=== PATIENT | female | born 1940 | race Caucasian/White ===

== ENCOUNTER 2019-10-30 10:13 | Emergency (ER) | payer OTHER ==
[2019-10-30] MEDS ORDERED: NA CHLORIDE 0.9% 500 ML ONE (10:39)
[2019-10-30] MEDS ORDERED: METOCLOPRAMIDE 10 MG/2mL INJ ONE (10:39)
[2019-10-30 10:58] LABS: Absolute Lymphocytes (CBC) 1.5 K/uL (0.7-4.9); Basophils % 0.8 % (0-1.3); Hematocrit 43.3 % (36.0-45.0); Lymphocytes % 38.4 % (15.3-44.8); MPV 9.3 fL (7.6-11.3); RBC Red Blood Cell Count 4.98 M/uL (3.86-4.86)
--- NOTE | 2019-10-30 11:04 | RAD REPORT ---
EXAM DESCRIPTION: CT - Head Brain Wo Cont - 10/30/2019 10:49 am CLINICAL HISTORY: Left frontal headache, left frontal head pain with COMPARISON: None. TECHNIQUE: Axial 5 mm thick images of the head were obtained without IV contrast. All CT scans are performed using dose optimization technique as appropriate and may include automated exposure control or mA/KV adjustment according to patient size. FINDINGS: No intracranial hemorrhage, mass, edema or shift of mid-line structures. No acute infarcti on changes seen. No abnormal extra-axial fluid collections. Ventricles are normal. No significant atr ophy or chronic ischemic change. Mastoid air cells and visualized portions of the paranasal sinuses are clear. No acute bony findings. IMPRESSION: Negative non-contrast CT head examination.
[2019-10-30 11:14] LABS: Albumin 3.2 g/dL (3.4-5.0); Bilirubin Total 0.5 mg/dL (0.2-1.0); Potassium 3.7 mmol/L (3.5-5.1); Protein, Total 6.8 g/dL (6.4-8.2)
[2019-10-30] MEDS ORDERED: ACETAMINOPHEN 325 MG TABLET ONE (11:35)
[2019-10-30] MEDS ORDERED: DIPHENHYDRAMINE 50 MG/ML VIAL ONE (11:36)
--- NOTE | 2019-10-30 12:21 | ER ---
Nurse's Notes [facility] Name: Chio Coombs Age: 79 yrs Sex: Female : 1940 Arrival Date: 10/30/2019 Time: 10:15 Bed 4 Private MD: Franc Duckworth V Diagnosis: Headache Presentation: 10/30 10:21 Presenting complaint: Patient states: Intermittent frontal headache that began this aa5 morning when pt woke up around 0700 today. Pt reports going to bed last night around 2130. Pt denies nausea/vomiting. Denies hx of headaches. 10:21 Transition of care: patient was not received from another setting of care. Onset of aa5 symptoms was October 30, 2019. Risk Assessment: Do you want to hurt yourself or someone else? Patient reports no desire to harm self or others. Initial Sepsis Screen: Does the patient meet any 2 criteria? No. Patient's initial sepsis screen is negative. Does the patient have a suspected source of infection? No. Patient's initial sepsis screen is negative. Care prior to arrival: None. 10:21 Acuity: RADHA 3 aa5 10:21 Method Of Arrival: Ambulatory aa5 Historical: - Allergies: 10:22 No Known Allergies; aa5 - Home Meds: 10:22 Warfarin alternate 5mg and 6mg every other day Oral [Active]; aa5 - PMHx: 10:22 Multiple PEs; Diverticulitis; aa5 - PSHx: 10:22 Cholecystectomy; Tonsillectomy; Knee surgery; back; aa5 - Immunization history:: Flu vaccine is up to date. - Coronavirus screen:: The patient has NOT traveled to [place], [place], or [place] in the past 14 days. The patient has NOT had contact with known/suspected case of Coronavirus?. - Social history:: Smoking status: Patient denies any tobacco usage or history of. - Ebola Screening: : No symptoms or risks identified at this time. Screenin:22 Abuse screen: Denies threats or abuse. Nutritional screening: No deficits noted. aa5 Tuberculosis screening: No symptoms or risk factors identified. Fall Risk None identified. Assessment: 10:22 General: Appears uncomfortable, Behavior is calm, cooperative. Pain: Complains of pain aa5 in forehead and top of head Pain does not radiate. Pain currently is 0 out of 10 on a pain scale. at worst was 5 out of 10 on a pain scale. Quality of pain is described as sharp, Pain began this morning Is intermittent. Neuro: Level of Consciousness is awake, alert, obeys commands, Oriented to person, place, time, situation, Locator are equal bilaterally Moves all extremities. Gait is steady, Speech is normal, Facial symmetry appears normal, Pupils are PERRLA. Cardiovascular: Heart tones S1 S2 present Patient's skin is warm and dry. Rhythm is regular. Respiratory: Airway is patent Respiratory effort is even, unlabored, Respiratory pattern is regular, symmetrical. GI: Abdomen is round non-distended, Bowel sounds present X 4 quads. Abd is soft and non tender X 4 quads. Patient currently denies nausea, vomiting. : No signs and/or symptoms were reported regarding the genitourinary system. EENT: No signs and/or symptoms were reported regarding the EENT system. Derm: Skin is pink, warm \T\ dry. Musculoskeletal: Range of motion: intact in all extremities. 11:20 Reassessment: Patient appears in no apparent distress at this time. Patient and/or em family updated on plan of care and expected duration. Pain level reassessed. Patient is alert, oriented x 3, equal unlabored respirations, skin warm/dry/pink. Patient states symptoms have not improved. 12:10 Reassessment: Patient appears in no apparent distress at this time. Patient and/or em family updated on plan of care and expected duration. Pain level reassessed. Patient is alert, oriented x 3, equal unlabored respirations, skin warm/dry/pink. Patient states feeling better. Patient states symptoms have improved. Vital Signs: 10:22 BP 177 / 67; Pulse 57; Resp 16 S; Temp 98.3(O); Pulse Ox 98% on R/A; Weight 88.45 kg aa5 (R); Height 5 ft. 4 in. (162.56 cm) (R); Pain 0/10; 11:20 BP 160 / 53; Pulse 54; Resp 18; Pulse Ox 99% on R/A; Pain 4/10; em 12:10 BP 156 / 71; Pulse 54; Resp 18; Pulse Ox 99% on R/A; em 10:22 Body Mass Index 33.47 (88.45 kg, 162.56 cm) aa5 ED Course: 10:15 Patient arrived in ED. mr 10:17 Franc Duckworth MD is Private Physician. mr 10:21 Arm band placed on Patient placed in an exam room, on a stretcher. aa5 10:21 Patient has correct armband on for positive identification. Placed in gown. Bed in low aa5 position. Call light in reach. Side rails up X2. 10:22 Shola Delacruz PA is PHCP. jmm 10:22 Alec Brown MD is Attending Physician. jmm 10:29 Drew Cabrera, ROSE MARIE is Primary Nurse. em 10:36 Triage completed. aa5 10:38 Initial lab(s) drawn, by me, sent to lab. Inserted saline lock: 20 gauge in left em antecubital area, using aseptic technique. Blood collected. 10:49 CT Head Brain wo Cont In Process Unspecified. EDMS 12:20 Arron Saldana MD is Referral Physician. jmm 12:35 No provider procedures requiring assistance completed. IV discontinued, intact, em bleeding controlled, No redness/swelling at site. Pressure dressing applied. Administered Medications: 10:39 Drug: NS 0.9% 500 ml Route: IV; Rate: bolus; Site: left antecubital; em 11:38 Follow up: IV Status: Completed infusion; IV Intake: 500ml em 10:39 Drug: Reglan 10 mg Route: IVP; Site: left antecubital; em 11:38 Follow up: Response: No adverse reaction; Marked relief of symptoms; Pain is unchanged, em physician notified 11:34 Drug: Tylenol 650 mg Route: PO; em 12:10 Follow up: Response: No adverse reaction; Marked relief of symptoms; Pain is decreased em 11:34 Drug: Benadryl 12.5 mg Route: IVP; Site: left antecubital; em 12:10 Follow up: Response: No adverse reaction; Marked relief of symptoms; Pain is decreased em Intake: 11:38 IV: 500ml; Total: 500ml. em Outcome: 12:21 Discharge ordered by . jmm 12:35 Discharged to home ambulatory, with family. em 12:35 Condition: good 12:35 Discharge instructions given to patient, family, Instructed on discharge instructions, follow up and referral plans. Demonstrated understanding of instructions, follow-up care. 12:38 Patient left the ED. em Signatures: Dispatcher [employer] EDShola Stephen PA PA jmm GregoryKhushi mr Drew Cabrera RN RN Michaelle Duncan RN RN aa5 Corrections: (The following items were deleted from the chart) 10:45 10:21 Presenting complaint: Patient states: frontal headache that began this morning aa5 when pt woke up around 0700 today. Pt reports going to bed last night around 2130. Pt denies nausea/vomiting. Denies hx of headaches. aa5
--- NOTE | 2019-10-30 12:21 | EDPHYS ---
Physician Documentation [facility] Name: Chio Coombs Age: 79 yrs Sex: Female : 1940 Arrival Date: 10/30/2019 Time: 10:15 Bed 4 Private MD: Franc Duckworth V ED Physician Alec Brown HPI: 10/30 10:32 This 79 yrs old Female presents to ER via Unassigned with complaints of Head jmm pain. 10:32 The patient complains of pain to the top of head and left frontal area. Onset: The jmm symptoms/episode began/occurred 3.5 hour(s) ago. Associated signs and symptoms: Pertinent negatives: dizziness, fever, neck stiffness, paresthesias. This is a 79 year old female that presents to the ED with complaints of left sided headache beginning this morning at around 0730. Patient states not having a similar headache in the past. Localized to the left frontal area. Denies fever or vomiting. . Historical: - Allergies: 10:22 No Known Allergies; aa5 - Home Meds: 10:22 Warfarin alternate 5mg and 6mg every other day Oral [Active]; aa5 - PMHx: 10:22 Multiple PEs; Diverticulitis; aa5 - PSHx: 10:22 Cholecystectomy; Tonsillectomy; Knee surgery; back; aa5 - Immunization history:: Flu vaccine is up to date. - Coronavirus screen:: The patient has NOT traveled to [place], [place], or [place] in the past 14 days. The patient has NOT had contact with known/suspected case of Coronavirus?. - Social history:: Smoking status: Patient denies any tobacco usage or history of. - Ebola Screening: : No symptoms or risks identified at this time. ROS: 10:32 Constitutional: Negative for fever, chills, and weight loss, Cardiovascular: Negative jmm for chest pain, palpitations, and edema, Respiratory: Negative for shortness of breath, cough, wheezing, and pleuritic chest pain. 10:32 Abdomen/GI: Positive for nausea. 10:32 Neuro: Positive for headache. 10:32 All other systems are negative. Exam: 10:32 Constitutional: This is a well developed, well nourished patient who is awake, alert, jmm and in no acute distress. Head/Face: atraumatic. Eyes: EOMI, no conjunctival erythema appreciated ENT: Moist Mucus Membranes Neck: Trachea midline, Supple Chest/axilla: Normal chest wall appearance and motion. Cardiovascular: Regular rate and rhythm. No edema appreciated Respiratory: Normal respirations, no respiratory distress appreciated Abdomen/GI: Non distended, soft Back: Normal ROM Skin: General appearance color normal MS/ Extremity: Moves all extremities, no obvious deformities appreciated, no edema noted to the lower extremities Neuro: Awake and alert, normal gait Psych: Behavior is normal, Mood is normal, Patient is cooperative and pleasant Vital Signs: 10:22 BP 177 / 67; Pulse 57; Resp 16 S; Temp 98.3(O); Pulse Ox 98% on R/A; Weight 88.45 kg aa5 (R); Height 5 ft. 4 in. (162.56 cm) (R); Pain 0/10; 11:20 BP 160 / 53; Pulse 54; Resp 18; Pulse Ox 99% on R/A; Pain 4/10; em 12:10 BP 156 / 71; Pulse 54; Resp 18; Pulse Ox 99% on R/A; em 10:22 Body Mass Index 33.47 (88.45 kg, 162.56 cm) aa5 MDM: 10:27 Patient medically screened. [facility] 12:19 Data reviewed: vital signs, nurses notes. Counseling: I had a detailed discussion with richelle the patient and/or guardian regarding: the historical points, exam findings, and any diagnostic results supporting the discharge/admit diagnosis, lab results, radiology results, the need for outpatient follow up, to return to the emergency department if symptoms worsen or persist or if there are any questions or concerns that arise at home. ED course: Headache decreased in intensity. CT within 6 hours reveals no signs of SAH. Neck is supple, I do not suspect meningitis. ESR wnl, I do not suspect temporal arteritis. Patient is advised to follow up with neuro for further evaluation. Patient otherwise given strict return precautions. Patient understood and agrees with the plan of care. . 10/30 10:31 Order name: CBC with Diff; Complete Time: 11:16 [facility] 10/30 10:31 Order name: CMP; Complete Time: 11:16 [facility] 10/30 10:31 Order name: ESR; Complete Time: 11:16 [facility] 10/30 10:31 Order name: CT Head Brain wo Cont; Complete Time: 11:08 [facility] 10/30 10:31 Order name: Saline Lock; Complete Time: 10:43 [facility] Administered Medications: 10:39 Drug: NS 0.9% 500 ml Route: IV; Rate: bolus; Site: left antecubital; em 11:38 Follow up: IV Status: Completed infusion; IV Intake: 500ml em 10:39 Drug: Reglan 10 mg Route: IVP; Site: left antecubital; em 11:38 Follow up: Response: No adverse reaction; Marked relief of symptoms; Pain is unchanged, em physician notified 11:34 Drug: Tylenol 650 mg Route: PO; em 12:10 Follow up: Response: No adverse reaction; Marked relief of symptoms; Pain is decreased em 11:34 Drug: Benadryl 12.5 mg Route: IVP; Site: left antecubital; em 12:10 Follow up: Response: No adverse reaction; Marked relief of symptoms; Pain is decreased em Disposition: 10/31 07:40 Co-signature as Attending Physician, Alec Brown MD I agree with the assessment and collin plan of care. Disposition: 10/30/19 12:21 Discharged to Home. Impression: Headache. - Condition is Stable. - Discharge Instructions: General Headache Without Cause. - Medication Reconciliation Form, Thank You Letter, Antibiotic Education, Prescription Opioid Use form. - Follow up: Arron Saldana MD; When: 2 - 3 days; Reason: Recheck today's complaints, Continuance of care, Re-evaluation by your physician. Signatures: Dispatcher [employer] Alec Carpenter MD MD cha Mickail, Joel, PA PA [facility] Drew Cabrera, RN RN em Michaelle Joy, RN RN aa5 Corrections: (The following items were deleted from the chart) 10/30 12:38 12:21 10/30/2019 12:21 Discharged to Home. Impression: Headache. Condition is Stable. em Forms are Medication Reconciliation Form, Thank You Letter, Antibiotic Education, Prescription Opioid Use. Follow up: Arron Saldana; When: 2 - 3 days; Reason: Recheck today's complaints, Continuance of care, Re-evaluation by your physician. rick
== END 2019-10-30 12:38 | disposition home or self-care (01) ==
LOC: ER 10:13
DX: R51 Headache (principal); Z86.711 Personal history of pulmonary embolism; Z79.01 Long term (current) use of anticoagulants
CPT/HCPCS: 96361; 85025; 36415; 85652; 80053; 70450; 96375; 96374; 99284; J2765; J1200; J7040

== ENCOUNTER 2020-05-18 16:21 | Emergency (ER) | payer OTHER ==
[2020-05-18] MEDS ORDERED: ACETAMINOPHEN 325 MG TABLET ONE (17:19)
--- NOTE | 2020-05-18 17:44 | RAD REPORT ---
EXAM DESCRIPTION: RAD - Ankle Left 3 View -05/18/2020 5:21 pm CLINICAL HISTORY: Left ankle pain status post injury FINDINGS: No fracture or dislocation is seen.
--- NOTE | 2020-05-18 17:45 | RAD REPORT ---
EXAM DESCRIPTION: RAD - Foot Left 3 View - 05/18/2020 5:21 pm CLINICAL HISTORY: Left Foot pain FINDINGS: No fracture or dislocation is seen. Large calcaneal spur.
[2020-05-18] MEDS ORDERED: TRAMADOL HCL 50 MG TAB ONE ×2 (17:55→18:26)
--- NOTE | 2020-05-18 17:55 | ER ---
Nurse's Notes [facility] Name: Chio Coombs Age: 79 yrs Sex: Female : 1940 Arrival Date: 05/18/2020 Time: 16:23 Bed 14 Private MD: Diagnosis: Unspecified sprain of left foot;Sprain of ankle-left Presentation: 05/18 16:31 Chief complaint: Patient states: Twisted left ankle 2 hours [employer]. Pain to ankle and foot ll1 since. Coronavirus screen: Client denies travel out of the [place] in the last 14 days. At this time, the client does not indicate any symptoms associated with coronavirus-19. Ebola Screen: Patient denies travel to an Ebola-affected area in the 21 days before illness onset. Initial Sepsis Screen: Does the patient meet any 2 criteria? No. Patient's initial sepsis screen is negative. Risk Assessment: Do you want to hurt yourself or someone else? Patient reports no desire to harm self or others. Onset of symptoms was May 18, 2020. 16:31 Method Of Arrival: Wheelchair ll1 16:31 Acuity: RADHA 3 ll1 Historical: - Allergies: 16:32 No Known Allergies; ll1 - PMHx: 16:32 Diverticulitis; Multiple PEs; ll1 - PSHx: 16:32 Cholecystectomy; Tonsillectomy; Knee surgery; back; ll1 - Immunization history:: Flu vaccine is up to date. - Social history:: Smoking status: Patient denies any tobacco usage or history of. Patient/guardian denies using alcohol, street drugs. Screenin:45 Abuse screen: Denies threats or abuse. Denies injuries from another. Nutritional jr10 screening: No deficits noted. Tuberculosis screening: No symptoms or risk factors identified. Fall Risk Fall in past 12 months (25 points). No secondary diagnosis (0 pts). No IV (0 pts). Ambulatory Aid- None/Bed Rest/Nurse Assist (0 pts). Gait- Normal/Bed Rest/Wheelchair (0 pts) Mental Status- Oriented to own ability (0 pts). Assessment: 16:45 General: Appears uncomfortable, Behavior is appropriate for age. Pain: Complains of jr10 pain in dorsum of left foot Pain radiates to left leg Pain currently is 10 out of 10 on a pain scale. Quality of pain is described as aching, shooting, throbbing, Pain began 2 hours ago. Is continuous, Aggravated by weight bearing, Noted to be grimacing. Neuro: No deficits noted. Cardiovascular: Pulses are palpable in right dorsalis pedis artery and left dorsalis pedis artery. Respiratory: No deficits noted. Airway is patent Respiratory effort is even, unlabored, Respiratory pattern is regular, symmetrical. Musculoskeletal: Circulation, motion, and sensation intact. Capillary refill < 3 seconds, Swelling present in dorsum of left foot. Injury Description: Bruise sustained to dorsum of left foot. Vital Signs: 16:31 BP 184 / 69; Pulse 51; Resp 18; Temp 98.5; Pulse Ox 99% ; Weight 81.65 kg; Height 5 ft. ll1 4 in. (162.56 cm); Pain 8/10; 18:30 BP 178 / 72; Pulse 54; Resp 18; Pulse Ox 99% on R/A; jr10 16:31 Body Mass Index 30.90 (81.65 kg, 162.56 cm) ll1 ED Course: 16:23 Patient arrived in ED. as 16:32 Triage completed. ll1 16:33 Arm band placed on. ll1 16:36 Alec Strange PA is PHCP. cp 16:36 Alec Brown MD is Attending Physician. cp 16:37 Qiana Gregory, ROSE MARIE is Primary Nurse. jr10 16:45 Patient has correct armband on for positive identification. Bed in low position. Call jr10 light in reach. Side rails up X2. art installer on. Pulse ox on. NIBP on. 16:45 No provider procedures requiring assistance completed. Patient did not have IV access jr10 during this emergency room visit. 17:21 XRAY Foot LEFT 3 View In Process Unspecified. EDMS 17:21 XRAY Ankle LEFT 3 view In Process Unspecified. EDMS 18:29 Ortho shoe applied to left foot. jr10 Administered Medications: 17:13 Drug: Tylenol 650 mg Route: PO; jr10 18:32 Follow up: Response: No adverse reaction jr10 17:15 Not Given (Patient Refused; pt currently on coumadin, states that her doctor does not jr10 want her taking ibuprofen): Ibuprofen 800 mg PO once 18:24 Drug: traMADol 100 mg Route: PO; jr10 18:32 Follow up: Response: No adverse reaction jr10 Outcome: 17:55 Discharge ordered by . cp 18:29 Discharged to home via wheelchair. jr10 18:29 Condition: good 18:29 Discharge instructions given to patient, Instructed on discharge instructions, follow up and referral plans. Demonstrated understanding of instructions, follow-up care, medications, Prescriptions given X 1. 18:31 Patient left the ED. jr10 Signatures: Dispatcher [employer] EDJil Marr Corey, PA PA cp Lewis, Lynsay, RN RN ll1 Qiana Gregory RN RN jr10
--- NOTE | 2020-05-18 17:55 | EDPHYS ---
Physician Documentation [facility] Name: Chio Coombs Age: 79 yrs Sex: Female : 1940 Arrival Date: 05/18/2020 Time: 16:23 Bed 14 Private MD: Alec Arredondo HPI: 05/18 16:55 This 79 yrs old Female presents to ER via Wheelchair with complaints of Foot cp Injury. 16:55 The patient presents with an injury, pain, that is acute, swelling, tenderness. The cp complaints affect the left foot and left ankle. Context: resulted from a mis-step, the patient can partially bear weight, the patient is able to ambulate, with moderate difficulty. Onset: The symptoms/episode began/occurred today. Associated signs and symptoms: Pertinent negatives calf tenderness, numbness. Historical: - Allergies: 16:32 No Known Allergies; ll1 - PMHx: 16:32 Diverticulitis; Multiple PEs; ll1 - PSHx: 16:32 Cholecystectomy; Tonsillectomy; Knee surgery; back; ll1 - Immunization history:: Flu vaccine is up to date. - Social history:: Smoking status: Patient denies any tobacco usage or history of. Patient/guardian denies using alcohol, street drugs. ROS: 17:05 MS/extremity: Positive for pain, swelling, tenderness, of the left foot and left ankle. cp 17:05 Neuro: Negative for numbness, tingling. cp 17:05 All other systems are negative. Exam: 17:10 Constitutional: The patient appears in no acute distress, alert, awake, well developed, cp well nourished. 17:10 Musculoskeletal/extremity: Extremities: grossly normal except: noted in the dorsum of cp left foot and left lateral ankle: pain, swelling, tenderness, ROM: limited passive range of motion due to pain, in the left ankle, Perfusion: the extremity is normally perfused throughout, Sensation intact. Achilles tendon palpated and intact. Vital Signs: 16:31 BP 184 / 69; Pulse 51; Resp 18; Temp 98.5; Pulse Ox 99% ; Weight 81.65 kg; Height 5 ft. ll1 4 in. (162.56 cm); Pain 8/10; 18:30 BP 178 / 72; Pulse 54; Resp 18; Pulse Ox 99% on R/A; jr10 16:31 Body Mass Index 30.90 (81.65 kg, 162.56 cm) ll1 Procedures: 18:25 Splinting: Splint applied to left foot and left ankle using walking boot. applied by cp nurse. Examined by me, post splint application: neurovascular intact, Patient tolerated well. MDM: 16:38 Patient medically screened. cp 17:10 Differential diagnosis: open fracture, closed fracture, sprain. cp 17:35 Test interpretation: by ED physician or midlevel provider: xrays of left ankle negative cp for fracture and xrays of left foot negative for fracture. 17:55 Data reviewed: vital signs, nurses notes, radiologic studies, plain films. cp 17:55 Response to treatment: the patient's symptoms have markedly improved after treatment, cp and as a result, I will discharge patient. 05/18 16:51 Order name: XRAY Foot LEFT 3 View; Complete Time: 17:47 cp 05/18 17:47 Interpretation: Reviewed report. 05/18 16:51 Order name: XRAY Ankle LEFT 3 view; Complete Time: 17:47 cp 05/18 17:48 Interpretation: Report reviewed. 05/18 17:54 Order name: Walking boot; Complete Time: 18:24 cp Administered Medications: 17:13 Drug: Tylenol 650 mg Route: PO; [facility] 18:32 Follow up: Response: No adverse reaction [facility] 17:15 Not Given (Patient Refused; pt currently on coumadin, states that her doctor does not jr10 want her taking ibuprofen): Ibuprofen 800 mg PO once 18:24 Drug: traMADol 100 mg Route: PO; [facility] 18:32 Follow up: Response: No adverse reaction [facility] Disposition: 18:30 Chart complete. cp Disposition: 05/18/20 17:55 Discharged to Home. Impression: Unspecified sprain of left foot, Sprain of ankle - left. - Condition is Stable. - Discharge Instructions: Ankle Sprain, Foot Sprain. - Prescriptions for Tramadol 50 mg Oral Tablet - take 1 tablet by ORAL route every 8 hours as needed; 12 tablet. - Medication Reconciliation Form, Thank You Letter, Antibiotic Education, Prescription Opioid Use form. - Follow up: Private Physician; When: 1 week; Reason: Recheck today's complaints. - Problem is new. - Symptoms have improved. Addendum: 05/20/2020 09:03 Co-signature as Attending Physician, Alec Brown MD I agree with the assessment and c henderson plan of care. Signatures: Dispatcher [employer] EDAlec Traylor MD MD cha Page, Corey, PA PA cp Lewis, Lynsay, RN RN ll1 Qiana Gregory RN RN jr10 Corrections: (The following items were deleted from the chart) 05/18 18:31 17:55 05/18/2020 17:55 Discharged to Home. Impression: Unspecified sprain of left foot; jr10 Sprain of ankle - left. Condition is Stable. Forms are Medication Reconciliation Form, Thank You Letter, Antibiotic Education, Prescription Opioid Use. Follow up: Private Physician; When: 1 week; Reason: Recheck today's complaints. Problem is new. Symptoms have improved. cp
== END 2020-05-18 18:31 | disposition home or self-care (01) ==
LOC: ER 16:21
DX: S93.402A Sprain of unspecified ligament of left ankle, initial encounter (principal); S93.602A Unspecified sprain of left foot, initial encounter; X50.1XXA Overexertion from prolonged static or awkward postures, initial encounter; Y93.9 Activity, unspecified; Y92.9 Unspecified place or not applicable
CPT/HCPCS: 99284

== ENCOUNTER 2021-01-07 17:44 | Inpatient (IN) | payer OTHER ==
[2021-01-07 23:30] VITALS: BMI 32.7
[2021-01-07] MEDS ORDERED: ONDANSETRON 4 MG/2 ML VIAL IV PRN (23:37)
[2021-01-07] MEDS ORDERED: POLYETHYL GLY 3350 17 GM/DOSE PO PRN (23:37)
[2021-01-07] MEDS ORDERED: ACETAMINOPHEN 325 MG TABLET PO PRN (23:37)
[2021-01-07] MEDS ORDERED: LOPERAMIDE HCL 2 MG CAPSULE PO PRN (23:37)
[2021-01-07] MEDS ORDERED: DIPHENHYDRAMINE 25 MG TAB/CAP PO PRN (23:37)
[2021-01-07] MEDS ORDERED: ONDANSETRON 4 MG (ODT) TAB PO PRN (23:41)
[2021-01-07] MEDS ORDERED: NACHLORIDE 0.45% 1,000 ML with NA BICARB 8.4% 50 MEQ IV SCH ×2 (23:45)
[2021-01-08] MEDS: METRONIDAZOLE 500mg IVPB 500 MG/100 ML BAG IV SCH ×3 (00:05→16:57)
[2021-01-08] MEDS: NACHLORIDE 0.45% 1,000 ML IV SCH (00:06)
[2021-01-08 00:17] LABS: Absolute Lymphocytes (CBC) 1.8 K/uL (0.7-4.9); Basophils % 0.5 % (0-1.3); Hematocrit 41.4 % (36.0-45.0); Lymphocytes % 20.7 % (15.3-44.8); MPV 9.8 fL (7.6-11.3); RBC Red Blood Cell Count 4.79 M/uL (3.86-4.86)
[2021-01-08 00:20] LABS: Protime INR 1.95
[2021-01-08 01:18] LABS: Albumin 3.1 g/dL (3.4-5.0); Bilirubin Direct 0.2 mg/dL (0-0.2); Bilirubin Total 0.8 mg/dL (0.2-1.0); Magnesium 2.2 mg/dL (1.8-2.4); Phosphorus 3.4 mg/dL (2.5-4.9); Potassium 3.8 mmol/L (3.5-5.1); Protein, Total 6.8 g/dL (6.4-8.2); Thyroid Stimulating Hormone 1.6 uIU/mL (0.360-3.740)
[2021-01-08 02:23] LABS: Urine Appearance CLEAR (Clear); Urine Bilirubin NEGATIVE (Negataive); Urine Blood 1+ (Negative); Urine Color YELLOW (Yellow); Urine Glucose NEGATIVE (Negative); Urine Protein NEGATIVE (Negative); Urine Urobilinogen 0.2 mg/dL (0.2-1.0); Urine pH 5.5 (5.0-7.0)
[2021-01-08 02:26] LABS: Urine Microscopic Reflex ORDER UMIC
[2021-01-08 03:00] LABS: Urine Bacteria <20 /HPF (<20); Urine RBC NONE SEEN /HPF (NONE SEEN)
[2021-01-08 04:37] LABS: Absolute Lymphocytes (CBC) 1.8 K/uL (0.7-4.9); Basophils % 0.5 % (0-1.3); Hematocrit 37.2 % (36.0-45.0); Lymphocytes % 23.7 % (15.3-44.8); MPV 9.5 fL (7.6-11.3); RBC Red Blood Cell Count 4.33 M/uL (3.86-4.86)
[2021-01-08 04:46] LABS: Magnesium 2.1 mg/dL (1.8-2.4); Potassium 3.9 mmol/L (3.5-5.1); Protime INR 1.91
--- NOTE | 2021-01-08 08:42 | RAD REPORT ---
EXAM DESCRIPTION: RAD - Chest Pa And Lat (2 Views) - 01/08/2021 2:24 am CLINICAL HISTORY: direct admit Chest pain. COMPARISON: CHEST SINGLE VIEW dated 02/24/2015; CHEST PA AND LAT 2 VIEW dated 02/23/2013 FINDINGS: The lungs are hyperexpanded compatible with COPD. The heart is upper limit normal in size. No displaced fractures. Moderate to large hiatal hernia.
[2021-01-08] MEDS ORDERED: POTASSIUM CL SA 10 MEQ TAB PO ONE (09:00)
[2021-01-08] MEDS ORDERED: ENOXAPARIN 40 MG/0.4 ML SQ SCH (09:00)
[2021-01-08] MEDS: CIPROFLOXACIN 400mg IV 400 MG/200 ML BAG IV SCH ×2 (10:34→20:53)
[2021-01-08] MEDS: TRAMADOL HCL 50 MG TAB PO PRN ×2 (11:21→20:57)
--- NOTE | 2021-01-08 11:59 | RAD REPORT ---
EXAM DESCRIPTION: CT Abdomen and Pelvis COMPARISON: CT abdomen pelvis May 02, 2019 CLINICAL HISTORY: [facility] MAIN Diverticulitis TECHNIQUE: CT of the abdomen and pelvis was acquired with IV contrast material. Coronal and sagitt al reconstructions were obtained. Automated exposure control was utilized on this examination as a dose lowering technique. FINDINGS: Lung bases: Mild cardiomegaly with clear lung bases. Liver: Multiple hepatic cysts measure up to 2.1 cm. Gallbladder and biliary: Cholecystectomy. Mild chronic intrahepatic biliary ductal dilatation is note d. Pancreas: Fatty infiltration of the pancreatic head. Spleen: Normal. Adrenal glands: Normal adrenal glands. Kidneys: Normal right kidney. Small left renal cysts are noted. Stomach and Small Bowel: Large hiatal hernia (the majority of the stomach is intrathoracic). Urinary bladder: Normal. Uterus and Adnexa: Normal. Colon and Appendix: Severe descending and sigmoid diverticulosis. There is focal wall thickening and diverticular inflammation of the descending colon on series 501 image 37. No evidence of appendicitis . Retroperitoneum and lymph nodes: Normal. Vascular: Moderate calcified multivessel atherosclerosis. 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 Four of the arms perforated beyond the IVC into adjacent structures including the third portion of the duodenum, aortic bifurcation (possibly intramural), and two arms within the L3-L4 vertebral bodies a nd disc space. Peritoneal cavity: No ascites or free air. Musculoskeletal and soft tissues: Small fat-containing periumbilical hernia. No aggressive bone lesio ns. Chronic anterior wedge deformity of T12 with mild height loss. A 2.8 cm exostosis is noted of t he anterior right proximal femur. IMPRESSION: 1. Acute uncomplicated descending colon diverticulitis. 2. Mild cardiomegaly. 3. Large hiatal hernia (majority of the stomach is intrathoracic). 4. Intrarenal IVC filter with several arms perforating into adjacent structures including the third p ortion of the duodenum, aortic bifurcation, and adjacent spine. While these are stable from 2019, arm s perforating into the duodenum and adjacent to/within the posterior aortic wall could cause future p athology. Recommend surgical/interventional consultation. 5. Cholecystectomy with mild chronic intrahepatic biliary ductal dilatation. Electronically signed by: Sam Sal MD 01/08/2021 2:40 AM CDT Due to temporary technical issues with the PACS/Fluency reporting system, reports are being signed by the in house radiologists without review as a courtesy to insure prompt reporting. The interpreting radiologist is fully responsible for the content of the report.
--- NOTE | 2021-01-08 16:34 | EKG ---
Test Date: 2021-01-07 Test Time: 23:37:10 Bead Wire Taper: QUINTIN MEASUREMENT RESULTS: Intervals: Rate: 65 AL: 142 QRSD: 132 QT: 444 QTc: 461 Arnold: P: 61 AL: 142 QRS: -3 T: -74 INTERPRETIVE STATEMENTS: Normal sinus rhythm Right bundle branch block Moderate voltage criteria for LVH, may be normal variant T wave abnormality, consider inferolateral ischemia Abnormal ECG Compared to ECG 02/24/2015 14:41:40 Left ventricular hypertrophy now present T-wave abnormality now present Possible ischemia now present Sinus arrhythmia no longer present Left-axis deviation no longer present Myocardial infarct finding no longer present Electronically Signed On 01-08-21 16:32:54 CDT by Jerry Julio
[2021-01-08] MEDS ORDERED: WARFARIN SODIUM 5 MG TAB PO SCH (21:00)
--- NOTE | 2021-01-08 21:13 | P.PN ---
Subjective Date of Service: 01/08/21 Chief Complaint: ABDOMEN PAIN IMPROVED Subjective: Improving HER PAIN IS LOT BETTER. SHE WILL EAT TODAY. Review of Systems 10-point ROS is otherwise unremarkable General: Weakness Physical Examination - Vital Signs Temperature: 99 F Blood Pressure: 144/64 Pulse: 56 Respirations: 18 Pulse Ox (%): 95 - Physical Exam General: Oriented x3, Mild distress HEENT: Atraumatic, PERRLA, EOMI Neck: Supple, JVD not distended Respiratory: Clear to auscultation bilaterally, Normal air movement Cardiovascular: Regular rate/rhythm, Normal S1 S2 Gastrointestinal: Tenderness (MILD LOWER.) Musculoskeletal: No tenderness Integumentary: No rashes Neurological: Normal speech, Normal tone, Normal affect Lymphatics: No axilla or inguinal lymphadenopathy - Studies Laboratory Data (last 24 hrs) 01/08/21 04:12: PT 22.1 H, INR 1.91 01/08/21 04:12: Sodium 138, Potassium 3.9, BUN 16, Creatinine 0.77, Glucose 90, Magnesium 2.1 01/08/21 04:12: WBC 7.80, Hgb 12.3, Hct 37.2, Plt Count 225 01/07/21 23:45: Sodium 140, Potassium 3.8, BUN 16, Creatinine 0.85, Glucose 95, Phosphorus 3.4, Magnesium 2.2, Total Bilirubin 0.8, AST 12 L, ALT 14, Alkaline Phosphatase 78 01/07/21 23:45: PT 22.6 H, INR 1.95, APTT 31.9 01/07/21 23:45: WBC 8.50, Hgb 13.4, Hct 41.4, Plt Count 253 Medications List Reviewed: Yes Assessment And Plan - Current Problems (Diagnosis) (1) Diverticulitis Onset Date: 02/26/15 Current Visit: No Status: Acute Plan: SHE HAS REFRACTORY DIVERTICULITIS. SHE DID NOT IMPROVE ON ORAL ANTIBIOITCS SHE IS DOING IV FOR NOW. MAY GO HOME IN AM. Qualifiers: Diverticulitis site: large intestine
[2021-01-09] MEDS: METRONIDAZOLE 500mg IVPB 500 MG/100 ML BAG IV SCH ×2 (01:05→07:47)
[2021-01-09 05:32] LABS: Absolute Lymphocytes (CBC) 1.5 K/uL (0.7-4.9); Basophils % 0.9 % (0-1.3); Hematocrit 38.5 % (36.0-45.0); Lymphocytes % 31.9 % (15.3-44.8); MPV 9.3 fL (7.6-11.3); RBC Red Blood Cell Count 4.43 M/uL (3.86-4.86)
[2021-01-09 05:46] LABS: Protime INR 1.71
[2021-01-09 06:17] LABS: Magnesium 2.2 mg/dL (1.8-2.4)
[2021-01-09] MEDS: CIPROFLOXACIN 400mg IV 400 MG/200 ML BAG IV SCH (07:48)
[2021-01-09 08:57] VITALS: O2SAT 96
[2021-01-09] MEDS: NACHLORIDE 0.45% 1,000 ML IV SCH (09:05)
[2021-01-09 13:59] VITALS: BP 155/61; TEMP 97.7
--- NOTE | 2021-01-09 20:38 | P.DS ---
Admission Date: 01/09/21 Discharge Date: 01/09/21 Disposition: ROUTINE DISCHARGE Discharge Condition: FAIR Reason for Admission: ABDOMEN PAIN IMPROVED - Problems (1) Diverticulitis Onset Date: 02/26/15 Status: Acute Qualifiers: Diverticulitis site: large intestine Hospital Course: BARON IS A LOT BETTER. HER PAIN IS GONE. HER CT SCAN SHOWS POSSIBLE EROSION OF IVC FILTER BUT SHE HAS NO SYMPTOMS. SHE HAS THIS FILTER ABOUT 10 YEARS AGO AT [facility]. I ADVISED HER TO MAKE APT WITH DR. MEMBRENO AT [facility] TO SEE IF WE NEED SURGERY TO REMOVE FILTER OR NOT. I SUSPECT IT WILL BE SURGERY IT SHOWS EROSION OF IVC BY FILTER. Vital Signs/Physical Exam: Temp Pulse Resp BP Pulse Ox 97.7 F 52 18 155/61 H 98 01/09/21 12:00 01/09/21 12:00 01/09/21 12:00 01/09/21 12:00 01/09/21 12:00 Laboratory Data at Discharge: WBC 4.60 K/uL (4.3-10.9) D 01/09/21 05:10 Hgb 12.6 g/dL (12.0-15.0) 01/09/21 05:10 Hct 38.5 % (36.0-45.0) 01/09/21 05:10 Plt Count 217 K/uL (152-406) 01/09/21 05:10 PT 19.8 SECONDS (9.5-12.5) H 01/09/21 05:10 INR 1.71 01/09/21 05:10 APTT 31.9 SECONDS (24.3-36.9) 01/07/21 23:45 Sodium 138 mmol/L (136-145) 01/09/21 05:10 Potassium 4.0 mmol/L (3.5-5.1) 01/09/21 05:10 BUN 11 mg/dL (7-18) 01/09/21 05:10 Creatinine 0.76 mg/dL (0.55-1.3) 01/09/21 05:10 Glucose 93 mg/dL (74-106) 01/09/21 05:10 Phosphorus 3.4 mg/dL (2.5-4.9) 01/07/21 23:45 Magnesium 2.2 mg/dL (1.8-2.4) 01/09/21 05:10 Total Bilirubin 0.8 mg/dL (0.2-1.0) 01/07/21 23:45 AST 12 U/L (15-37) L 01/07/21 23:45 ALT 14 U/L (12-78) 01/07/21 23:45 Alkaline Phosphatase 78 U/L (45-117) 01/07/21 23:45 Home Medications: Warfarin Sodium 5 mg PO BEDTIME 01/08/21 Ciprofloxacin HCl [Cipro 500 MG Tablet] 500 mg PO BID #20 tab 01/09/21 metroNIDAZOLE [Flagyl] 500 mg PO Q8H #30 tablet 01/09/21 New Medications: Ciprofloxacin HCl [Cipro 500 MG Tablet] 500 mg PO BID #20 tab metroNIDAZOLE [Flagyl] 500 mg PO Q8H #30 tablet Physician Discharge Instructions: PROBLEM: Diverticulitis GOAL: Clear understanding of disease process E-scripts sent to [facility] in [place]. INSTRUCTIONS: - Follow up with Dr. Duckworth in 1 week. - Follow up with vascular surgeon, Dr. Phan Membreno for IVC filter complication. Contact information provided. - Finish taking all antibiotics in their entirety. - Return to the ER if your symptoms worsen. - Call the 2nd floor at if you have any questions regarding your nursing care. Diet: Full liquid diet Activity: As tolerated IMMUNIZATION Influenza Vaccine Indicated: Influenza Vaccine Given: Date Given: Pneumonia Vaccine Indicated: No Pneumonia Vaccine Given: Date Given: Followup: Franc Duckworth MD [ACTIVE - CAN ADMIT] - 1 Week (Follow up in office in 1 week. Call to schedule an appointment.) PHAN MEMBRENO [OUTSIDE PHYSICIAN] -
[2021-01-11 22:30] LABS: Vitamin D 1,25-Dihydroxy Total 28 pg/mL (18-72); Vitamin D,1,25-OH2, D2 <8 pg/mL
== END 2021-01-09 14:48 | disposition home or self-care (01) | DRG 392 ==
LOC: 2ND 22:42 → OBSVTOIN 01-09 08:13
PROVIDERS: ADMIT Internal Medicine; ATTEND Internal Medicine
DX: K57.32 Diverticulitis of large intestine without perforation or abscess without bleeding (principal); E78.5 Hyperlipidemia, unspecified; K21.9 Gastro-esophageal reflux disease without esophagitis; Z86.718 Personal history of other venous thrombosis and embolism; Z86.711 Personal history of pulmonary embolism; Z87.898 Personal history of other specified conditions; Z79.01 Long term (current) use of anticoagulants; Z79.899 Other long term (current) drug therapy; Z20.822 Contact with and (suspected) exposure to COVID-19
CPT/HCPCS: 36415; 71046; 74177; 80048; 80076; 81003; 81015; 82607; 82652; 82947; 83735; 84100; 84443; 85025; 85610; 85730; 87040; 87077; 87086; 87088; 87186; 93005; G0378; G0379; J0744; J1650; Q9967; U0003

== ENCOUNTER 2021-02-24 17:56 | Emergency (ER) | payer OTHER ==
--- OUTSIDE RECORDS SUMMARY | 2021-02-24 17:59 | XMS REPORT | Continuity of Care Document ---
:1940 Author Organization [facility] t Address [address] [place] [address] Care Team Providers Name Role Phone Donita RODRIGUEZ Primary Care Physician Navjot Membreno MD Attending Clinician Payers Payer Name Policy Type Policy Effective Date Expiration Date Sour ce Number MEDICAREMEDICARE PART [id number] 2006 Juan Walker AND 00:00:00 [facility]astafari [id number] 2005 [place] [facility] [place] OPEN [id number] 2018 Sara on [id number]/09/29 00:00:00 Met ezio [id number] Problems This patient has no known problems. Allergies, Adverse Reactions, Alerts This patient has no known allergies or adverse reactions. Social History Social Habit Start Date Stop Date Quantity Comments Source Exposure to Not sure [facility] SARS-CoV-2 (event) Sex Assigned At [birth year] [facility] ethodist 00:00:00 00:00:00 Medications This patient has no known medications. Procedures Procedure Date / Time Performed Performing Clinician Tim mcfarland CT CHEST EXTERNAL STUDY 2021-01-08 02:07:00 Phan Membreno Plan of Care Planned Activity Planned Date Details Comments Source Future Scheduled 2021-04-28 INFLUENZA VACCINE Yane Osborne Test 00:00:00 [code = INFLUENZA VACCINE] Future Scheduled 2006 65+ PNEUMOCOCCAL Georgi Osborne Test 00:00:00 VACCINE (1 of 1 - PPSV23) [code = 65+ PNEUMOCOCCAL VACCINE (1 of 1 - PPSV23)] Future Scheduled 1991 SHINGLES VACCINES (#1) H christina Rastafari Test 00:00:00 [code = SHINGLES VACCINES (#1)] Future Scheduled 1959 Hepatitis C screening Ho lucio Rastafari Test 00:00:00 (procedure) [code = 495424527] Future Scheduled 1953 COVID-19 VACCINE (1) Geovanny reed Rastafari Test 00:00:00 [code = COVID-19 VACCINE (1)] Encounters Start End Encounter Admission Attending Care Care Encounter Source Date/Time Date/Time Type Type Clinicians Facility Department ID 2021-02-13 2021-02-13 [facility] [id number] [place] 00:00:00 00:00:00 PHAN [address] 2021-02-13 2021-02-13 [facility] [id number] [place] 00:00:00 00:00:00 PHAN [address] 2021-02-13 2021-02-13 Outpatient [facility] [id number] [place] 00:00:00 00:00:00 PHAN [address] 2021-01-29 2021-01-29 Outpatient [facility] [id number] [place] 00:00:00 00:00:00 PHAN [address] Results Test Description Test Time Test Comments Results Result [facility] e Comments CT Chest External 2021-02-13 This exam was not [facility] Study 19:00:56 acquired at a [facility]ast[facility] facility and has not been interpreted by a Rastafari Provider. The exam was imported into our imaging system.
[2021-02-24] MEDS ORDERED: DIAZEPAM 10 MG/2 ML INJ SYRINGE ONE (19:47)
[2021-02-24] MEDS ORDERED: dexAMETHasone 10 MG/ML VIAL ONE (19:47)
[2021-02-24 20:14] LABS: Potassium 4.1 mmol/L (3.5-5.1)
--- NOTE | 2021-02-24 20:31 | ER ---
Nurse's Notes [facility] Name: Chio Coombs Age: 80 yrs Sex: Female : 1940 Arrival Date: 02/24/2021 Time: 18:01 Bed 4 Private MD: Diagnosis: Muscle spasm of back Presentation: 02/24 18:02 Chief complaint: EMS states: "pt has been reporting small cramps in her back for about jd3 1 week now. today and for the last 2 hours she has been reporting pain through her spine and on the left side of her back.". Coronavirus screen: At this time, the client does not indicate any symptoms associated with coronavirus-19. Ebola Screen: Patient negative for fever greater than or equal to 101.5 degrees Fahrenheit, and additional compatible Ebola Virus Disease symptoms. Initial Sepsis Screen: Does the patient meet any 2 criteria? No. Patient's initial sepsis screen is negative. Does the patient have a suspected source of infection? No. Patient's initial sepsis screen is negative. Risk Assessment: Do you want to hurt yourself or someone else? Patient reports no desire to harm self or others. Onset of symptoms was February 24, 2021. 18:02 Method Of Arrival: EMS: [facility] jd3 18:02 Acuity: RADHA 3 jd3 Historical: - Allergies: 18:05 No Known Allergies; jd3 - Home Meds: 18:05 Warfarin alternate 5mg and 6mg every other day Oral [Active]; jd3 - PMHx: 18:05 Diverticulitis; Multiple PEs; jd3 - PSHx: 18:05 Tonsillectomy; Cholecystectomy; Knee surgery; back; jd3 - Immunization history:: Adult Immunizations up to date. - Social history:: Smoking status: Patient denies any tobacco usage or history of. Screenin:53 Abuse screen: Denies threats or abuse. Nutritional screening: No deficits noted. ea Tuberculosis screening: No symptoms or risk factors identified. Fall Risk None identified. Assessment: 19:53 General: Appears uncomfortable, Behavior is calm, cooperative, appropriate for age. ea Pain: Complains of pain in back. Neuro: Level of Consciousness is awake, alert, obeys commands, Oriented to person, place, time. Cardiovascular: Patient's skin is warm and dry. Respiratory: Airway is patent Respiratory effort is even, unlabored, Respiratory pattern is regular, symmetrical. Derm: Skin is pink, warm \\T\\ dry. 20:50 Reassessment: Patient and/or family updated on plan of care and expected duration. Pain ea level reassessed. Patient is alert, oriented x 3, equal unlabored respirations, skin warm/dry/pink. Patient states feeling better. Patient states symptoms have improved. Vital Signs: 18:05 BP 159 / 61; Pulse 58; Resp 17 S; Temp 97.6(TE); Pulse Ox 99% on R/A; Weight 85.73 kg jd3 (R); Height 5 ft. 4 in. (162.56 cm) (R); Pain 0/10; 18:30 BP 166 / 72; Pulse 60; Resp 17 S; Pulse Ox 99% on R/A; jd3 19:54 Pulse 60; Resp 18; Pulse Ox 97% ; ea 20:01 BP 127 / 69; ea 18:05 Body Mass Index 32.44 (85.73 kg, 162.56 cm) jd3 ED Course: 18:01 Patient arrived in ED. jd3 18:04 Triage completed. jd3 18:06 Arm band placed on. jd3 18:52 Colby Baires NP is PHCP. pm1 18:52 Alec Brown MD is Attending Physician. pm1 19:03 Marcin Zavala, RN is Primary Nurse. bp 19:52 Inserted saline lock: 20 gauge in right antecubital area, using aseptic technique. ea Blood collected. 19:53 Patient has correct armband on for positive identification. Bed in low position. Call ea light in reach. Side rails up X2. 20:08 Primary Nurse role handed off by Marcin Zavala, RN tt3 20:11 Jia Dietz, ROSE MARIE is Primary Nurse. ea 20:50 No provider procedures requiring assistance completed. IV discontinued, intact, ea bleeding controlled, No redness/swelling at site. Pressure dressing applied. Administered Medications: 19:52 Drug: Valium (diazepam) 5 mg Route: IVP; Site: right antecubital; ea 19:52 Drug: Decadron - Dexamethasone 10 mg Route: IVP; Site: right antecubital; ea Outcome: 20:31 Discharge ordered by . pm1 20:50 Discharged to home via wheelchair, with family. ea 20:50 Condition: stable 20:50 Discharge instructions given to patient, Instructed on discharge instructions, follow up and referral plans. medication usage, Demonstrated understanding of instructions, follow-up care, medications, Prescriptions given X 2. 20:51 Patient left the ED. ea Signatures: Colby Baires, LUCY GENERAL LABOR FORKLIFT OPERATOR pm1 Jia Dietz RN RN ea Davies, Jonathon, RN RN jd3 Marcin Zavala RN RN Jah Suazo tt3
--- NOTE | 2021-02-24 20:31 | EDPHYS ---
Physician Documentation [facility] Name: Chio Coombs Age: 80 yrs Sex: Female : 1940 Arrival Date: 02/24/2021 Time: 18:01 Bed 4 Private MD: ED Physician Alec Brown HPI: 02/24 19:52 This 80 yrs old Female presents to ER via EMS with complaints of Back Pain. pm1 19:52 The patient presents with pain that is acute. The symptoms are located in the left pm1 subscapular area. Onset: The symptoms/episode began/occurred today. The pain does not radiate. Associated signs and symptoms: Pertinent negatives: abdominal pain, chest pain, fever, nausea, vomiting, shortness of breath. The problem was sustained from unknown cause. Modifying factors: the patient symptoms are aggravated by movement of arms. Severity of symptoms: in the emergency department the symptoms are unchanged. The patient has not experienced similar symptoms in the past. The patient has not recently seen a physician. Historical: - Allergies: 18:05 No Known Allergies; jd3 - Home Meds: 18:05 Warfarin alternate 5mg and 6mg every other day Oral [Active]; jd3 - PMHx: 18:05 Diverticulitis; Multiple PEs; jd3 - PSHx: 18:05 Tonsillectomy; Cholecystectomy; Knee surgery; back; jd3 - Immunization history:: Adult Immunizations up to date. - Social history:: Smoking status: Patient denies any tobacco usage or history of. ROS: 19:52 Constitutional: Negative for fever, chills, and weight loss, Eyes: Negative for injury, pm1 pain, redness, and discharge, ENT: Negative for injury, pain, and discharge, Neck: Negative for injury, pain, and swelling, Cardiovascular: Negative for chest pain, palpitations, and edema, Respiratory: Negative for shortness of breath, cough, wheezing, and pleuritic chest pain, Abdomen/GI: Negative for abdominal pain, nausea, vomiting, diarrhea, and constipation. 19:52 MS/Extremity: Negative for injury and deformity, Skin: Negative for injury, rash, and discoloration, Neuro: Negative for headache, weakness, numbness, tingling, and seizure. 19:52 Back: Positive for pain with movement, of the left subscapular area. Exam: 19:52 Constitutional: This is a well developed, well nourished patient who is awake, alert, pm1 and in no acute distress. Head/Face: Normocephalic, atraumatic. Neck: Trachea midline, no thyromegaly or masses palpated, and no cervical lymphadenopathy. Supple, full range of motion without nuchal rigidity, or vertebral point tenderness. No Meningismus. Chest/axilla: Normal chest wall appearance and motion. Nontender with no deformity. No lesions are appreciated. 19:52 Skin: Warm, dry with normal turgor. Normal color with no rashes, no lesions, and no evidence of cellulitis. MS/ Extremity: Pulses equal, no cyanosis. Neurovascular intact. Full, normal range of motion. 19:52 Cardiovascular: Rate: normal, Rhythm: regular, Pulses: no pulse deficits are appreciated. 19:52 Respiratory: Exam negative for acute changes, respiratory distress, shortness of breath. 19:52 Abdomen/GI: Inspection: abdomen appears normal, Palpation: abdomen is soft and non-tender, in all quadrants. 19:52 Back: normal spinal alignment noted, vertebral tenderness, is not appreciated, muscle spasm, is appreciated in the left subscapular area, pain reproduced with palpation, moving patient's right arm above her head and laterally. 19:52 Neuro: Exam negative for acute changes, Orientation: is normal, Mentation: is normal, Motor: is normal, moves all fours. Vital Signs: 18:05 BP 159 / 61; Pulse 58; Resp 17 S; Temp 97.6(TE); Pulse Ox 99% on R/A; Weight 85.73 kg jd3 (R); Height 5 ft. 4 in. (162.56 cm) (R); Pain 0/10; 18:30 BP 166 / 72; Pulse 60; Resp 17 S; Pulse Ox 99% on R/A; jd3 19:54 Pulse 60; Resp 18; Pulse Ox 97% ; ea 20:01 BP 127 / 69; ea 18:05 Body Mass Index 32.44 (85.73 kg, 162.56 cm) jd3 MDM: 18:52 Patient medically screened. pm1 20:30 Data reviewed: vital signs. Data interpreted: Pulse oximetry: on room air is 97 %. pm1 Interpretation: normal. Counseling: I had a detailed discussion with the patient and/or guardian regarding: the historical points, exam findings, and any diagnostic results supporting the discharge/admit diagnosis, lab results, the need for outpatient follow up, to return to the emergency department if symptoms worsen or persist or if there are any questions or concerns that arise at home. 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 Patient last prescribed narcotic 02/02/2021. pm1 02/24 19:14 Order name: BMP; Complete Time: 20:24 pm1 02/24 19:14 Order name: IV Saline Lock; Complete Time: 19:52 pm1 Administered Medications: 19:52 Drug: Valium (diazepam) 5 mg Route: IVP; Site: right antecubital; ea 19:52 Drug: Decadron - Dexamethasone 10 mg Route: IVP; Site: right antecubital; ea Disposition: 02/25 07:39 Co-signature as Attending Physician, Alec Brown MD I agree with the assessment and collin plan of care. Disposition: 02/24/21 20:31 Discharged to Home. Impression: Muscle spasm of back. - Condition is Stable. - Discharge Instructions: Muscle Cramps and Spasms, Back Injury Prevention, [id number], Heat Therapy. - Prescriptions for Valium 2 mg Oral Tablet - take 1 tablet by ORAL route every 8 hours As needed; 12 tablet. Medrol (Chacorta) 4 mg Oral Tablets, Dose Pack - take 1 tablet by ORAL route as directed - follow package instructions; 1 packet. - Medication Reconciliation Form, Thank You Letter, Antibiotic Education, Prescription Opioid Use form. - Follow up: Emergency Department; When: As needed; Reason: Worsening of condition. Follow up: Private Physician; When: 2 - 3 days; Reason: Recheck today's complaints, Continuance of care, Re-evaluation by your physician. - Problem is new. - Symptoms have improved. Signatures: Dispatcher [employer] EDAlec Traylor MD MD cha Marinas, Patrick, FLIGHT LINE MECHANIC FLIGHT LINE MECHANIC pm1 Jia Dietz RN RN ea Davies, Jonathon, RN RN jd3 Corrections: (The following items were deleted from the chart) 02/24 20:51 20:31 02/24/2021 20:31 Discharged to Home. Impression: Muscle spasm of back. Condition ea is Stable. Forms are Medication Reconciliation Form, Thank You Letter, Antibiotic Education, Prescription Opioid Use. Follow up: Emergency Department; When: As needed; Reason: Worsening of condition. Follow up: Private Physician; When: 2 - 3 days; Reason: Recheck today's complaints, Continuance of care, Re-evaluation by your physician. Problem is new. Symptoms have improved. pm1
[2021-02-24 21:08] VITALS: TEMP 97.6
[2021-02-24 21:11] VITALS: O2SAT 97
[2021-02-24 21:12] VITALS: BP 127/69
== END 2021-02-24 20:51 | disposition home or self-care (01) ==
LOC: ER 17:56
DX: M62.830 Muscle spasm of back (principal); Z86.711 Personal history of pulmonary embolism; Z79.01 Long term (current) use of anticoagulants
CPT/HCPCS: 80048; 36415; 96375; 96374; 99284; J3360; J1100

== ENCOUNTER 2024-11-29 16:25 | Emergency (ER) | payer OTHER ==
[2024-11-29 17:44] LABS: Absolute Basophils 0.1 K/uL (0-0.5); Absolute Eosinophils 0.1 K/uL (0-0.5); Absolute Lymphocytes (CBC) 1.5 K/uL (0.7-4.9); Absolute Monocytes 0.5 K/uL (0.1-1.3); Absolute Neutrophil 3.1 K/uL (1.8-8.0); Basophils % 1.1 % (0-1.3); Eosinophils % 2.1 % (0-4.4); Hematocrit 41.5 % (36.0-45.0); Hemoglobin 14.4 g/dL (12.0-15.0); Lymphocytes % 28.9 % (15.3-44.8); MCH 30.2 pg (27.0-35.0); MCHC 34.7 g/dL (32.0-36.0); MCV 87.1 fL (80-100); MPV 8.5 fL (7.6-11.3); Monocytes % 9.2 % (3.3-12.3); Neutrophils % 58.7 % (41.7-73.7); Nucleated Red Blood Cells % 0.1 % (0-0); Platelets 348 thou/uL (152-406); RBC Red Blood Cell Count 4.77 M/uL (3.86-4.86)
[2024-11-29 18:08] LABS: Albumin 2.8 g/dL (3.4-5.0); Albumin/Globulin Ratio 0.6 (1.1-1.8); Anion Gap 7.1 mEq/L (5.0-15.0); Bilirubin Total 0.2 mg/dL (0.2-1.0); Globulin 4.4 g/dL (2.3-3.5); Protein, Total 7.2 g/dL (6.4-8.2)
[2024-11-29 18:09] LABS: Potassium 4.1 mEq/L (3.5-5.1)
--- NOTE | 2024-11-29 20:43 | RAD REPORT ---
EXAMINATION: Pelvis Complete CLINICAL INDICATION: Pelvic pain TECHNIQUE: Real-time ultrasonography of the pelvis was performed transabdominally.. Color and spectra l Doppler evaluation of the ovaries was performed. COMPARISON: No prior exam. Findings: Evaluation is somewhat limited as the bladder is not distended. The uterus measures 6 x 3 x 4 cm. Endometrial stripe not well visualized but probably is not enlarged. An obvious fibroid is not seen. Neither ovary visualized perhaps secondary to atrophy. There graph the right and left adnexa unremark able Right and left adnexa unremarkable. No significant free fluid IMPRESSION: Grossly normal pelvic ultrasound
--- NOTE | 2024-11-29 20:43 | RAD REPORT ---
EXAMINATION: CT ABDOMEN AND PELVIS WITH CONTRAST CLINICAL INDICATION: Abdominal pain TECHNIQUE: CT abdomen and pelvis was performed, after the administration of 100 cc Isovue-300.. Sagit tae and coronal reconstructions were obtained. One or more of the following dose reduction techniques were used: Automated exposure control, adjustment of the mA and kV according to patient si ze, and iterative reconstruction. Unless otherwise specified, incidental findings do not require dedicated imaging follow-up. [id number]. Oral contrast was not given which limits evaluation of bowel and appendix. COMPARISON: .2020 FINDINGS: Moderate to large hiatal hernia. Hepatic cysts without significant change. Stable mild dilatation of bile ducts posterior segment righ t lobe of the liver. Spleen, pancreas, adrenals and kidneys unremarkable Small umbilical hernia Filter within the IVC. One limb penetrates the duodenum. Another limb penetrates the abdominal aorta. This was present on the prior exam. No periaortic hematoma. No free air. Diverticula stem from colon. Minimal stranding adjacent to the proximal sigmoid colon system with min imal diverticulitis. No adnexal mass. : IMPRESSION: Minimal sigmoid diverticulitis. Filter within the IVC. One limb penetrates the duodenum. Another limb penetrates the abdominal aorta. This is unchanged from the prior exam.. No periaortic hematoma. No free air.
--- NOTE | 2024-11-29 21:00 | ER ---
Nurse's Notes [facility] Name: Chio Coombs Age: 84 yrs Sex: Female : 1940 Arrival Date: 11/29/2024 Time: 16:25 Bed 8 Private MD: Diagnosis: Diverticulitis of large intestine without perforation or abscess without bleeding Presentation: 11/29 16:39 Chief complaint: Patient states: Pelvic pain X 1 month. Coronavirus screen: At this ld1 time, the client does not indicate any symptoms associated with coronavirus-19. Ebola Screen: No symptoms or risks identified at this time. Risk Assessment: Do you want to hurt yourself or someone else? Patient reports no desire to harm self or others. Onset of symptoms was November 29, 2024. 16:39 Method Of Arrival: Wheelchair ld1 16:39 Acuity: RADHA 3 ld1 Triage Assessment: 16:41 General: Appears in no apparent distress. comfortable, Behavior is calm, cooperative, ld1 appropriate for age. Pain: Denies pain. EENT: No signs and/or symptoms were reported regarding the EENT system. Neuro: Level of Consciousness is awake, alert, obeys commands, Oriented to person, place, time, situation. Cardiovascular: Capillary refill < 3 seconds Patient's skin is warm and dry. Respiratory: Airway is patent Respiratory effort is even, unlabored. GI: Abdomen is round non-distended. : No signs and/or symptoms were reported regarding the genitourinary system. Derm: No signs and/or symptoms reported regarding the dermatologic system. Musculoskeletal: No signs and/or symptoms reported regarding the musculoskeletal system. Historical: - Allergies: 16:40 No Known Allergies; ld1 - Home Meds: 16:40 Eliquis 2.5 mg oral tablet 1 tab [Active]; ld1 - PMHx: 16:40 Diverticulitis; Multiple PEs; ld1 - Immunization history:: Adult Immunizations up to date. - Infectious Disease History:: Denies. - Social history:: Smoking status: Patient denies any tobacco usage or history of. Screenin:[address] [facility] ED Fall Risk Assessment (Adult) History of falling in the last 3 months, jb4 including since admission No falls in past 3 months (0 pts) Confusion or Disorientation No (0 pts) Intoxicated or Sedated No (0 pts) Impaired Gait No (0 pts) Mobility Assist Device Used No (0 pt) Altered Elimination No (0 pt) Score/Fall Risk Level 0 - 2 = Low Risk Oriented to surroundings, Maintained a safe environment. Abuse screen: Denies threats or abuse. Nutritional screening: No deficits noted. Tuberculosis screening: No symptoms or risk factors identified. Assessment: 19:42 Reassessment: Patient appears in no apparent distress at this time. Patient and/or jb4 family updated on plan of care and expected duration. Pain level reassessed. Patient is alert, oriented x 3, equal unlabored respirations, skin warm/dry/pink. 20:49 Reassessment: Patient appears in no apparent distress at this time. Patient and/or jb4 family updated on plan of care and expected duration. Pain level reassessed. Patient is alert, oriented x 3, equal unlabored respirations, skin warm/dry/pink. 21:33 Reassessment: Patient appears in no apparent distress at this time. Patient and/or jb4 family updated on plan of care and expected duration. Pain level reassessed. Patient is alert, oriented x 3, equal unlabored respirations, skin warm/dry/pink. Vital Signs: 16:39 Pulse 68; Resp 18; Temp 98.2(TE); Pulse Ox 96% on R/A; ld1 16:41 BP 142 / 52; ld1 16:41 Weight 81.65 kg; Height 5 ft. 4 in. ; ld1 19:46 BP 151 / 89; Pulse 59; Resp 16; Pulse Ox 99% on R/A; jb4 20:49 BP 168 / 83; Pulse 60; Resp 16; Pulse Ox 99% on R/A; jb4 16:41 Body Mass Index 30.90 (81.65 kg, 162.56 cm) ld1 ED Course: 16:27 Patient arrived in ED. mr 16:32 Jarred Elder DO is Attending Physician. ms3 16:40 Triage completed. ld1 16:41 Arm band placed on right wrist. ld1 17:36 CMP Sent. bc6 17:36 CBC with Diff Sent. bc6 17:36 Initial lab(s) drawn, by mi, sent to lab. Missed attempt(s): 22 gauge in right bc6 antecubital area. Bleeding controlled, band aid applied, catheter tip intact. 17:53 US Pelvis Complete In Process Unspecified. EDMS 18:01 Attending Physician role handed off by Jarred Elder DO ms3 18:01 Alessandro Tineo MD is Attending Physician. ms3 18:58 Radiology exam delayed due to IV insertion attempt and/or patient not having sj appropriate IV at this time. 19:42 Delano Cardona, RN is Primary Nurse. jb4 20:03 Inserted saline lock: 22 gauge in left antecubital area, using aseptic technique. jb4 Missed attempt(s): 22 gauge in right antecubital area. upper arm. Bleeding controlled, band aid applied, catheter tip intact. 20:36 Abdomen In Process Unspecified. EDMS 21:33 Patient has correct armband on for positive identification. Bed in low position. Call jb4 light in reach. Side rails up X 1. Provided Education on: discharge instructions. 21:33 No provider procedures requiring assistance completed. IV discontinued, intact, jb4 bleeding controlled, No redness/swelling at site. Pressure dressing applied. Administered Medications: 21:32 Drug: Ciprofloxacin PO 500 mg PO once Route: PO; jb4 21:32 Follow up: Response: Medication administered at discharge. jb4 21:32 Drug: metroNIDAZOLE PO 500 mg PO once Route: PO; jb4 21:33 Follow up: Response: Medication administered at discharge. jb4 Medication: 21:33 VIS not applicable for this client. jb4 Outcome: 21:00 Discharge ordered by . rn 21:33 Discharged to home ambulatory, with family, jb4 21:33 Condition: stable 21:33 Discharge instructions given to patient, Instructed on discharge instructions, follow up and referral plans. medication usage, Demonstrated understanding of instructions, follow-up care, medications, Prescriptions given X 2, 21:34 Patient left the ED. jb4 Signatures: Dispatcher [employer] EDMS Khushi Gregory, Reg Reg Elizabeth Lamb Alessandro Tineo MD MD rn Bryson, James, RN RN jb4 Jarred Elder DO DO ms3 Nanette Elder RN RN ld1 Olivia Paige bc6 Corrections: (The following items were deleted from the chart) 20:36 20:26 In radiology for Abdomen Pelvis W/Wo Con+CT.RAD.BRZ. EDMS EDMS
--- NOTE | 2024-11-29 21:00 | EDPHYS ---
Physician Documentation [facility] Name: Chio Coombs Age: 84 yrs Sex: Female : 1940 Arrival Date: 11/29/2024 Time: 16:25 Bed 8 Private MD: ED Physician Alessandro Tineo HPI: 11/29 16:44 This 84 yrs old Female presents to ER via Wheelchair with complaints of Abdominal Pain, ms3 Pelvic Pain. 16:44 84-year-old female with past medical history of diverticulitis, multiple PEs presents ms3 to the emergency department from Dr. Palmer's office for pelvic pain that is been ongoing for 1 month. Patient states 2 weeks ago the pain was at its max and after starting gabapentin the pain has improved to where it is currently almost nonexistent per the patient. Patient endorses nausea and chills. She denies vomiting. She denies any inciting factors.. Historical: - Allergies: 16:40 No Known Allergies; ld1 - Home Meds: 16:40 Eliquis 2.5 mg oral tablet 1 tab [Active]; ld1 - PMHx: 16:40 Diverticulitis; Multiple PEs; ld1 - Immunization history:: Adult Immunizations up to date. - Infectious Disease History:: Denies. - Social history:: Smoking status: Patient denies any tobacco usage or history of. ROS: 16:44 Constitutional: Negative for fever, and chills. Cardiovascular: Negative for chest ms3 pain, and palpitations. Respiratory: Negative for shortness of breath, cough, wheezing, and pleuritic chest pain, 16:44 MS/Extremity: Negative for injury and deformity, Skin: Negative for injury, rash, and discoloration, 16:44 Abdomen/GI: Positive for abdominal pain, Exam: 16:44 Constitutional: This is a well developed, well nourished patient who is awake, alert, ms3 and in no acute distress. Cardiovascular: Regular rate and rhythm with a normal S1 and S2. No gallops, murmurs, or rubs. Normal PMI, no JVD. No pulse deficits. Respiratory: Lungs have equal breath sounds bilaterally, clear to auscultation and percussion. No rales, rhonchi or wheezes noted. No increased work of breathing, no retractions or nasal flaring. Abdomen/GI: Soft, non-tender, with normal bowel sounds. No distension or tympany. No guarding or rebound. No evidence of tenderness throughout. Skin: Warm, dry with normal turgor. Normal color with no rashes, no lesions, and no evidence of cellulitis. MS/ Extremity: Pulses equal, no cyanosis. Neurovascular intact. Full, normal range of motion. Vital Signs: 16:39 Pulse 68; Resp 18; Temp 98.2(TE); Pulse Ox 96% on R/A; ld1 16:41 BP 142 / 52; ld1 16:41 Weight 81.65 kg; Height 5 ft. 4 in. ; ld1 19:46 BP 151 / 89; Pulse 59; Resp 16; Pulse Ox 99% on R/A; jb4 20:49 BP 168 / 83; Pulse 60; Resp 16; Pulse Ox 99% on R/A; jb4 16:41 Body Mass Index 30.90 (81.65 kg, 162.56 cm) ld1 MDM: 16:42 Medical Screening Exam initiated ms3 16:44 Differential diagnosis: diverticulitis, non-specific abd pain, Pyelonephritis, ms3 Ureterolithiasis, urinary tract infection. 17:59 Transition of care: After a detail discussion of the patient's case, care is ms3 transferred to Alessandro Tineo MD. 18:02 ED course: Patient handed off to me by Dr. Elder pending u/s and CT abdomen. . rn 20:59 Data reviewed: vital signs, nurses notes, lab test result(s), radiologic studies. rn Management of patient was discussed with the following: [employer] Bar[employer] Reconditioner: Management discussed with Dr. Palmer, CT shows mild diverticulitis but no other acute complications or surgical complications. No perforation. Normal WBC. Ultrasound pelvis no acute findings. Dr. Palmer is okay with discharge on antibiotics and PCP follow-up.. Counseling: I had a detailed discussion with the patient and/or guardian regarding the historical points, exam findings, and any diagnostic results supporting the discharge/admit diagnosis, lab results, radiology results, the need for outpatient follow up, to return to the emergency department if symptoms worsen or persist or if there are any questions or concerns that arise at home. Special discussion: I discussed with the patient/guardian in detail that at this point there is no indication for admission to the hospital. It is understood, however, that if the symptoms persist or worsen the patient needs to return immediately for re-evaluation. 20:59 Special discussion: Based on the history and exam findings, there is no indication for rn further emergent testing or inpatient evaluation. I discussed with the patient/guardian the need to see the undercoater for further evaluation of the symptoms. 11/29 16:33 Order name: CBC with Diff; Complete Time: 17:57 ms3 11/29 16:33 Order name: CMP; Complete Time: 18:11 ms3 11/29 16:33 Order name: US Pelvis Complete; Complete Time: 20:44 ms3 11/29 20:36 Order name: Abdomen ; Complete Time: 20:44 EDMS Administered Medications: 21:32 Drug: Ciprofloxacin PO 500 mg PO once Route: PO; jb4 21:32 Follow up: Response: Medication administered at discharge. jb4 21:32 Drug: metroNIDAZOLE PO 500 mg PO once Route: PO; jb4 21:33 Follow up: Response: Medication administered at discharge. 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 - Prescription Opioid Use rn - Patient Portal Instructions rn - Leadership Thank You Letter rn Prescriptions: - Flagyl 500 mg Oral Tablet - take 1 tablet ORAL route every 8 hours for 10 days; 30 tablet; Refills: 0, rn Product Selection Permitted - Cipro 500 mg Oral Tablet - take 1 tablet ORAL route every 12 hours for 7 days; 14 tablet; Refills: 0, rn Product Selection Permitted Signatures: Dispatcher [employer] EDMS Alessandro Tineo MD MD rn Bryson, James RN RN jb4 Jarred Elder DO DO ms3 Nanette Elder RN RN ld1 Corrections: (The following items were deleted from the chart) 16:34 16:34 Pelvis Complete+US.RAD.BRZ ordered. EDMS EDMS 20:36 16:33 Abdomen Pelvis W/Wo Con+CT.RAD.BRZ ordered. EDMS EDMS
[2024-11-29] MEDS ORDERED: CIPROFLOXACIN HCL 500 MG TAB ONE (21:25)
[2024-11-29] MEDS ORDERED: metroNIDAZOLE 500 MG TABLET ONE (21:25)
[2024-11-29 22:05] VITALS: TEMP 98.2
[2024-11-29 22:16] VITALS: O2SAT 99
[2024-11-29 22:17] VITALS: BP 168/83
== END 2024-11-29 21:34 | disposition home or self-care (01) ==
LOC: ER 16:25
DX: K57.32 Diverticulitis of large intestine without perforation or abscess without bleeding (principal); Z86.711 Personal history of pulmonary embolism; Z79.01 Long term (current) use of anticoagulants
CPT/HCPCS: 85025; 36415; 80053; 74177; 76856; 99284; Q9967